=== PATIENT | female | born 1940 | race Caucasian/White ===

== ENCOUNTER → 2018-03-01 13:46 | Oncology outpatient (ONC) | payer OTHER, SELFPAY ==
[2018-03-01] MEDS: ZOLEDRONIC ACID 5 MG in SODIUM CHLORIDE 0.9% 100 ML 318.75 ML IV (14:21)
--- NOTE | 2018-03-01 15:10 | PC.NURSE ---
Tolerated Reclast infusion without adverse reaction noted.
[2018-03-01 15:11] VITALS: BP 133/73; PULSE 72; RESP 16; TEMP 37; O2SAT 96
== END ==
LOC: ONC 13:49
PROVIDERS: Family Provider Family Medicine; PCP Family Medicine; Visit Provider Family Medicine
DX: M81.0 Age-related osteoporosis without current pathological fracture (principal)
CPT/HCPCS: 96374; J3489

== ENCOUNTER 2018-03-24 12:22 | Emergency (ER) | payer OTHER, SELFPAY ==
[2018-03-24 12:25] VITALS: BP 155/68; PULSE 93; RESP 14; TEMP 36.8; O2SAT 100; BMI 21.6
--- NOTE | 2018-03-24 12:36 | ED.ARRPALP ---
HPI - Arrhythmia/Palpitations <Janae Avitia PA-C - Last Filed: 03/24/18 15:26> General Chief Complaint: Arrhythmia/Palpitations Stated Complaint: IRREGULAR HEART BEAT Time Seen by Provider: 03/24/18 12:34 Source: patient Mode of arrival: ambulatory Limitations: no limitations History of Present Illness HPI narrative: This 77-year-old female complains of irregular and rapid heart rate that started this morning. She states that she has felt ?wonky, meaning ?like I should be shaking, but I am not?. She states that she has been on atenolol for many years for tachycardia, and this has always worked well for her. Resting heart rates tend to be in the 60s to 70s, and maximal 90s if she is walking. She states that the feeling is similar this morning to prior to her going on atenolol. She states that she has a watch that measures heart rate and she has seen it very from the 60s-160s today, which is unusual. She denies any chest pain or dyspnea. She denies any pain swelling extremities. She denies any nausea or vomiting. She denies sweats or dizziness. She has been eating and drinking normally. She denies any recent illness such as respiratory or GI sx. She denies any new medications, did have her 1st infusion of Reclast a few weeks ago without problems. Related Data Home Medications Medication Instructions Recorded Confirmed atenolol 50 mg PO QDAY #30 tab 10/28/15 03/24/18 Allergies Allergy/AdvReac Type Severity Reaction Status Date / Time formaldehyde [FORMALDEHYDE] Allergy Severe ASTHMA Verified 03/24/18 12:34 lisinopril [LISINOPRIL] Allergy Mild RASH Verified 03/24/18 12:34 Sulfa (Sulfonamide Allergy Mild INFLAMMATIO Verified 03/24/18 12:34 Antibiotics) N [SULFA (SULFONAMIDE ANTIBIOTICS)] losartan [LOSARTAN] Allergy Unknown RASH Verified 03/24/18 12:34 NUTS Allergy Severe ASTHMA Uncoded 07/12/17 11:57 Review of Systems <Janae Avitia PA-C - Last Filed: 03/24/18 15:26> Review of Systems All systems reviewed & are unremarkable except as noted in HPI and below Exam <Janae Avitia PA-C - Last Filed: 03/24/18 15:26> Narrative Exam Narrative: GENERAL APPEARANCE: Patient sitting comfortably, in no distress. HEENT: PERRL, EOMI, normal oropharynx NECK/THYROID: Neck supple, no JVD. LUNGS: Clear to auscultation bilaterally. HEART: Regular rate and rhythm, up to 100, without murmur, normal S1, S2, no S3 or S4. ABDOMEN: Soft, NT, ND, + BS x 4 quadrants EXTREMITIES: No cyanosis or edema. No calf tenderness NEUROLOGIC: Alert and oriented, normal speech, gait and coordination. Initial Vital Signs Initial Vital Signs: Vital Signs Temperature 98.2 F 03/24/18 12:25 Pulse Rate 93 H 03/24/18 12:25 Respiratory Rate 14 03/24/18 12:25 Blood Pressure 155/68 H 03/24/18 12:25 Pulse Oximetry 100 03/24/18 12:25 <Luke Pastrana DO - Last Filed: 03/24/18 15:40> Initial Vital Signs Initial Vital Signs: Vital Signs Temperature 98.2 F 03/24/18 12:25 Pulse Rate 93 H 03/24/18 12:25 Respiratory Rate 14 03/24/18 12:25 Blood Pressure 155/68 H 03/24/18 12:25 Pulse Oximetry 100 03/24/18 12:25 Course <Janae Avitia PA-C - Last Filed: 03/24/18 15:26> Additional Information: Patient reported feeling comfortable while here. She is not hypoxic. Heart rates 80s to 90s with sinus rhythm. Heart rate close to 100 with ambulation. These rates are 10-20 points more than normal for her depending on situation. No clear contributing factors on her lab work. From what she describes she did have some irregular heart rate noted on her home monitor earlier today, and explained that it is possible she has intermittent atrial fibrillation even though we did not observe this here. Advised further workup is needed, and she will follow up with her PCP to discuss further testing/monitor in the next few days. In the interim, advised starting 81 mg ASA daily (she had a nosebleed on this previously which stopped on its own, agrees to try again). She agreed to return if she has worsening symptoms so that we can evaluate well symptomatic. Also advised to take an extra 25 mg of atenolol this afternoon, and can increase to 50 mg b.i.d. if she continues to have elevated heart rates. Explained that this frequently needs to be dosed b.i.d. for optimal symptom control. Orders Ordered: ED Orders 03/24/18 12:35 Complete Blood Count AUTO DIFF Stat Comprehensive Metabolic Panel Stat Magnesium Stat Thyroid Stimulating Hormone Stat Troponin & CK Cardiac Panel Stat Vital Signs - 8 hr 03/24/18 12:25 03/24/18 14:12 03/24/18 14:30 Temperature 98.2 F Pulse Rate 93 H 90 86 Respiratory Rate 14 18 10 L Blood Pressure 155/68 H Blood Pressure [Right Arm] 135/105 H 140/59 L Pulse Oximetry 100 99 98 03/24/18 14:55 Temperature Pulse Rate 88 Respiratory Rate 15 Blood Pressure 135/105 H Blood Pressure [Right Arm] Pulse Oximetry 99 <Luke Pastrana DO - Last Filed: 03/24/18 15:40> Orders Ordered: ED Orders 03/24/18 12:35 Complete Blood Count AUTO DIFF Stat Comprehensive Metabolic Panel Stat Magnesium Stat Thyroid Stimulating Hormone Stat Troponin & CK Cardiac Panel Stat Vital Signs - 8 hr 03/24/18 12:25 03/24/18 14:12 03/24/18 14:30 Temperature 98.2 F Pulse Rate 93 H 90 86 Respiratory Rate 14 18 10 L Blood Pressure 155/68 H Blood Pressure [Right Arm] 135/105 H 140/59 L Pulse Oximetry 100 99 98 03/24/18 14:55 Temperature Pulse Rate 88 Respiratory Rate 15 Blood Pressure 135/105 H Blood Pressure [Right Arm] Pulse Oximetry 99 MDM - Arrhythmia/Palpitations <Janae Avitia PA-C - Last Filed: 03/24/18 15:26> Lab Data Result diagrams: 03/24/18 12:35 03/24/18 12:35 Lab Results 03/24/18 03/24/18 03/24/18 Range/Units 12:35 12:35 12:35 WBC 7.5 (4.5-11.0) X10^3/uL RBC 4.65 (4.0-5.2) X10^6/uL Hgb 14.0 (12.0-16.0) g/dL Hct 42.2 (36-46) % MCV 90.6 (80-100) fL MCH 30.2 (26-34) PG MCHC 33.3 (30-36) % RDW 13.9 (11.6-14.8) % Plt Count 256 (150-400) X10^3/uL Neut % (Auto) 72.1 (50-75) % Lymph % (Auto) 21.3 L (25-40) % [place] % (Auto) 5.4 (3-14) % Eos % (Auto) 0.7 L (2-4) % Baso % (Auto) 0.5 (0-2) % Neut # (Auto) 5400 (9566-6915) /uL Sodium 141 (137-145) mmol/L Potassium 4.5 (3.4-5.1) mmol/L Chloride 101 (98-107) mmol/L Carbon Dioxide 27 (22-32) mmol/L BUN 22 H (7-17) mg/dL Creatinine 0.70 (0.52-1.04) mg/dL Estimated GFR > 60.0 (>60) mL/min BUN/Creatinine Ratio 31.4 H (6-22) Glucose 167 H (80-110) mg/dL Calcium 9.4 (8.4-10.2) mg/dL Magnesium 1.9 (1.6-2.3) mg/dL Total Bilirubin 0.5 (0.2-1.3) mg/dL AST 37 H (14-36) IU/L ALT 32 (9-52) IU/L Alkaline Phosphatase 80 (38-126) U/L Total Creatine Kinase 55 (30-135) U/L CK-MB (CK-2) TNP CK-MB (CK-2) Rel Index TNP Troponin I < 0.012 (0.01-0.034) ng/mL Total Protein 7.3 (6.3-8.2) g/dL Albumin 4.4 (3.5-5.0) g/dL Globulin 2.9 (1.7-4.1) g/dL Albumin/Globulin Ratio 1.5 (1.0-2.8) TSH 1.97 (0.47-4.68) uIU/mL Urine Dip Bedside Urine Glucose Negative Bedside Urine Bilirubin - Negative Bedside Urine Ketone - Negative Urine Specific [place] 1.010 Bedside Urine Occult Blood - Negative Bedside Urine pH 7.0 Bedside Urine Protein - Negative Bedside Urine Urobilinogen - Negative Bedside Urine Nitrite - Negative Bedside Urine Leukocytes - Negative Esterase ECG Data Attestation: I personally reviewed and interpreted this ECG as follows: (Normal sinus rhythm with a rate 91, normal axis, no ectopy) <Luke Pastrana DO - Last Filed: 03/24/18 15:40> Lab Data Lab Results 03/24/18 03/24/18 03/24/18 Range/Units 12:35 12:35 12:35 WBC 7.5 (4.5-11.0) X10^3/uL RBC 4.65 (4.0-5.2) X10^6/uL Hgb 14.0 (12.0-16.0) g/dL Hct 42.2 (36-46) % MCV 90.6 (80-100) fL MCH 30.2 (26-34) PG MCHC 33.3 (30-36) % RDW 13.9 (11.6-14.8) % Plt Count 256 (150-400) X10^3/uL Neut % (Auto) 72.1 (50-75) % Lymph % (Auto) 21.3 L (25-40) % [place] % (Auto) 5.4 (3-14) % Eos % (Auto) 0.7 L (2-4) % Baso % (Auto) 0.5 (0-2) % Neut # (Auto) 5400 (8868-9518) /uL Sodium 141 (137-145) mmol/L Potassium 4.5 (3.4-5.1) mmol/L Chloride 101 (98-107) mmol/L Carbon Dioxide 27 (22-32) mmol/L BUN 22 H (7-17) mg/dL Creatinine 0.70 (0.52-1.04) mg/dL Estimated GFR > 60.0 (>60) mL/min BUN/Creatinine Ratio 31.4 H (6-22) Glucose 167 H (80-110) mg/dL Calcium 9.4 (8.4-10.2) mg/dL Magnesium 1.9 (1.6-2.3) mg/dL Total Bilirubin 0.5 (0.2-1.3) mg/dL AST 37 H (14-36) IU/L ALT 32 (9-52) IU/L Alkaline Phosphatase 80 (38-126) U/L Total Creatine Kinase 55 (30-135) U/L CK-MB (CK-2) TNP CK-MB (CK-2) Rel Index TNP Troponin I < 0.012 (0.01-0.034) ng/mL Total Protein 7.3 (6.3-8.2) g/dL Albumin 4.4 (3.5-5.0) g/dL Globulin 2.9 (1.7-4.1) g/dL Albumin/Globulin Ratio 1.5 (1.0-2.8) TSH 1.97 (0.47-4.68) uIU/mL Urine Dip Bedside Urine Glucose Negative Bedside Urine Bilirubin - Negative Bedside Urine Ketone - Negative Urine Specific [place] 1.010 Bedside Urine Occult Blood - Negative Bedside Urine pH 7.0 Bedside Urine Protein - Negative Bedside Urine Urobilinogen - Negative Bedside Urine Nitrite - Negative Bedside Urine Leukocytes - Negative Esterase Discharge Plan Departure Patient Disposition: Home Clinical Impression: Tachycardia Discharge Date/Time: 03/24/18 14:56 Interventions: ED Discharge Assessment Last Done: 03/24/18 14:55 Instructions: DI for Tachycardia Activity Restrictions/Additional Instructions: It is not clear on your exam or testing why your fast heart rate is worse today. Your heart rate is in the 80s to 90s range, but regular when you are at rest today and just over 100 when you got up to walk around, which is 10-20 points more than normal from what you have described to me. We have not seen any irregular rhythm or skipped beats on your EKG or the monitor today. You do not have signs of infection or lab abnormality that seem to be causing this. When you get home, please take an extra 1/2 atenolol, and then you can take your usual dose tonight. If you're still noticing this tomorrow, go ahead and take 50 mg twice daily and monitor your heart rate. Please call your PCP 1st thing Monday morning and let them know you were seen in the ED and arranged follow-up in the next couple of days. It sounded like you may have had some irregular heartbeat from what you described on your home monitor, and as we talked about it is possible that you have atrial fibrillation on and off that we did not see here today. Due to this, I have suggested starting a baby aspirin (81 mg) once daily to help reduce risk of related problems like stroke. If you have severe nosebleeds on this, you can discontinue, but otherwise please stay on this until your PCP visit. You may need further testing, like a monitor that you wear at home, to evaluate further. Please return as we discussed if you are feeling poorly or have worsening symptoms again in the interim so that we can evaluate you on the monitor when you are symptomatic. Prescriptions: No Action atenolol 50 MG tablet 50 mg PO QDAY Qty: 30 RF: 0 Referrals: David Smith MD [Primary Care Provider] - <Luke Pastrana DO - Last Filed: 03/24/18 15:40> Cosign ED Attending Clintature Attestation: I was immediately available in the department for consultation. Documentation has been reviewed. I agree with assessment and plan.
[2018-03-24 12:52] LABS: Add Manual Diff / Slide Review NO; Basophils Percent Auto 0.5 % (0-2); Eosinophils Percent Auto 0.7 % (2-4); Hematocrit 42.2 % (36-46); Lymphocytes Percent Auto 21.3 % (25-40); Mean Corpuscular HGB Conc 33.3 % (30-36); Mean Corpuscular Hemoglobin 30.2 PG (26-34); Mean Corpuscular Volume 90.6 fL (80-100); Monocytes Percent Auto 5.4 % (3-14); Neutrophils Absolute Auto 5400 /uL (1500-7000); Neutrophils Percent Auto 72.1 % (50-75); Platelet Count 256 X10^3/uL (150-400); Red Blood Cell Count 4.65 X10^6/uL (4.0-5.2); Red Cell Distribution Width 13.9 % (11.6-14.8); White Blood Cell Count 7.5 X10^3/uL (4.5-11.0)
[2018-03-24 13:02] LABS: Alanine Aminotransferase 32 IU/L (9-52); Albumin 4.4 g/dL (3.5-5.0); Albumin Globulin Ratio 1.5 (1.0-2.8); Alkaline Phosphatase 80 U/L (38-126); Aspartate Aminotransferase 37 IU/L (14-36); BUN Creatinine Ratio 31.4 (6-22); Bilirubin Total 0.5 mg/dL (0.2-1.3); Blood Urea Nitrogen 22 mg/dL (7-17); Calcium 9.4 mg/dL (8.4-10.2); Carbon Dioxide 27 mmol/L (22-32); Chloride 101 mmol/L (98-107); Creatine Kinase 55 U/L (30-135); Estimated Glomerular Filt Rate > 60.0 mL/min (>60); Globulin 2.9 g/dL (1.7-4.1); Glucose 167 mg/dL (80-110); HEMOLYSIS < 15 (0-50); Magnesium 1.9 mg/dL (1.6-2.3); Potassium 4.5 mmol/L (3.4-5.1); Sodium 141 mmol/L (137-145); Total Protein 7.3 g/dL (6.3-8.2)
[2018-03-24 13:21] LABS: Troponin I < 0.012 ng/mL (0.01-0.034)
[2018-03-24 13:58] LABS: Thyroid Stimulating Hormone 1.97 uIU/mL (0.47-4.68)
[2018-03-24 14:12] VITALS: BP 135/105; PULSE 90; RESP 18; O2SAT 99
[2018-03-24 14:30] VITALS: BP 140/59; PULSE 86; RESP 10; O2SAT 98
[2018-03-24 14:55] VITALS: BP 135/105; PULSE 88; RESP 15; O2SAT 99
== END 2018-03-24 14:56 | disposition home or self-care (01) ==
PROVIDERS: Emergency Provider Internal Medicine; Family Provider Family Medicine; PCP Family Medicine
DX: R00.0 Tachycardia, unspecified (principal)
CPT/HCPCS: 36591; 80053; 81003; 82550; 83735; 84443; 84484; 85025; 93005; 99282; 99284

== ENCOUNTER → 2018-10-02 14:15 | Outpatient (CLI) | payer OTHER, SELFPAY ==
--- NOTE | 2018-10-02 | DI.MG.S_ITS ---
BILATERAL DIGITAL SCREENING MAMMOGRAM 3D/2D WITH CAD: 10/02/2018 CLINICAL: Routine screening. Family history of breast cancer. Comparison is made to exams dated: 03/14/2017 mammogram and 02/02/2015 mammogram - [facility]. There are scattered fibroglandular elements in both breasts. Current study was also evaluated with a Computer Aided Detection (CAD) system. There are benign calcifications in both breasts. No significant masses, calcifications, or other findings are seen in either breast. There has been no significant interval change. IMPRESSION: There is no mammographic evidence of malignancy. A 1 year screening mammogram is recommended. This exam was interpreted at Station ID: [id number]. NOTE: For mammograms, a report in lay terms will be sent to the patient. Approximately 15% of breast malignancies will not be visualized mammographically. In the management of a palpable breast mass, a negative mammogram must not discourage biopsy of a clinically suspicious lesion. Electronically Signed By: Robby austin/sahil:10/02/2018 18:03:51 copy to: David Smith letter sent: Normal Exam ACR BI-RADS Category 2: Benign Finding(s) 3342F
== END ==
PROVIDERS: Family Provider Family Medicine; PCP Family Medicine; Visit Provider Nurse Practitioner Family
DX: Z12.31 Encounter for screening mammogram for malignant neoplasm of breast (principal); M81.0 Age-related osteoporosis without current pathological fracture; Z78.0 Asymptomatic menopausal state; Z80.3 Family history of malignant neoplasm of breast
CPT/HCPCS: 77063; 77067; 77080

== ENCOUNTER → 2020-10-01 13:25 | Outpatient (CLI) | payer OTHER, SELFPAY ==
[2020-10-01 14:43] LABS: Hemoglobin A1C% w Est Avg Glu 5.9 % (4.0-6.0)
[2020-10-01 14:45] LABS: Albumin 4.3 g/dL (3.5-5.0); Blood Urea Nitrogen 17 mg/dL (7-17); Calcium 9.4 mg/dL (8.4-10.2); Carbon Dioxide 31 mmol/L (22-32); Chloride 104 mmol/L (98-107); Estimated Glomerular Filt Rate > 60.0 mL/min (>60); Glucose 161 mg/dL (80-110); HEMOLYSIS < 15 (0-50); Phosphorous 3.5 mg/dL (2.8-4.1); Potassium 4.1 mmol/L (3.4-5.1); Sodium 140 mmol/L (137-145)
== END ==
PROVIDERS: PCP Family Medicine; Referring Provider Internal Medicine Endocrinology, Diabetes & Metabolism; Visit Provider Internal Medicine Endocrinology, Diabetes & Metabolism
DX: R73.03 Prediabetes (principal)
CPT/HCPCS: 36415; 80069; 83036

== ENCOUNTER → 2020-11-26 11:41 | Outpatient (CLI) | payer OTHER, SELFPAY | PROVIDERS: PCP Family Medicine; Referring Provider Internal Medicine Endocrinology, Diabetes & Metabolism; Visit Provider Internal Medicine Endocrinology, Diabetes & Metabolism | DX: M81.0 Age-related osteoporosis without current pathological fracture (principal); Z78.0 Asymptomatic menopausal state | CPT/HCPCS: 77080 ==

== ENCOUNTER → 2020-12-11 11:22 | Outpatient (CLI) | payer OTHER, SELFPAY ==
--- NOTE | 2020-12-11 | DI.MG.S_ITS ---
BILATERAL DIGITAL SCREENING MAMMOGRAM 3D/2D WITH CAD: 12/11/2020 CLINICAL: Routine screening. Family history of breast cancer. Comparison is made to exams dated: 10/02/2018 mammogram, 03/14/2017 mammogram, and 02/02/2015 mammogram - [facility]. There are scattered fibroglandular elements in both breasts. Current study was also evaluated with a Computer Aided Detection (CAD) system. There are benign calcifications in both breasts. No significant masses, calcifications, or other findings are seen in either breast. There has been no significant interval change. IMPRESSION: BENIGN There is no mammographic evidence of malignancy. A 1 year screening mammogram is recommended. This exam was interpreted at Station ID: [id number]. NOTE: For mammograms, a report in lay terms will be sent to the patient. Approximately 15% of breast malignancies will not be visualized mammographically. In the management of a palpable breast mass, a negative mammogram must not discourage biopsy of a clinically suspicious lesion. Electronically Signed By: Kwame helm/sahil:12/11/2020 12:08:27 copy to: David Smith letter sent: Normal Exam ACR BI-RADS Category 2: Benign Finding(s) 3342F
== END ==
PROVIDERS: PCP Family Medicine; Referring Provider Family Medicine; Visit Provider Family Medicine
DX: Z12.31 Encounter for screening mammogram for malignant neoplasm of breast (principal); Z80.3 Family history of malignant neoplasm of breast
CPT/HCPCS: 77063; 77067

== ENCOUNTER → 2021-12-23 13:48 | Outpatient (CLI) | payer OTHER, SELFPAY ==
--- NOTE | 2021-12-23 | DI.MG.S_ITS ---
BILATERAL DIGITAL SCREENING MAMMOGRAM 3D/2D WITH CAD: 12/23/2021 CLINICAL: Routine screening. Family history of breast cancer. Comparison is made to exams dated: 12/11/2020 mammogram, 10/02/2018 mammogram, and 03/14/2017 mammogram - [facility]. There are scattered areas of fibroglandular density in both breasts (category b / 25%-50% glandular tissue). Current study was also evaluated with a Computer Aided Detection (CAD) system. There is a cluster of grouped fine punctate calcifications in the right breast at 10 o'clock posterior depth. No other significant masses, calcifications, or other findings are seen in either breast. IMPRESSION: INCOMPLETE: NEEDS ADDITIONAL IMAGING EVALUATION The cluster of grouped fine punctate calcifications in the right breast are indeterminate. Magnification views are recommended. Based on the Tyrer Cuzick model (a risk assessment model) the patient's lifetime risk is 1.9% and her 10 year risk is 0.0%. According to the ACR, ACS, and NCCN guidelines, an annual breast MRI exam along with mammogram is recommended if the patient's lifetime risk is 20% or greater. This exam was interpreted at Station ID: [id number]. NOTE: For mammograms, a report in lay terms will be sent to the patient. Approximately 15% of breast malignancies will not be visualized mammographically. In the management of a palpable breast mass, a negative mammogram must not discourage biopsy of a clinically suspicious lesion. Electronically Signed By: Jasmeet Turk M.D., jr/sahil:12/23/2021 14:28:43 copy to: David Smith letter sent: Additional Imaging Needed ACR BI-RADS Category 0: Incomplete 3340F
== END ==
PROVIDERS: PCP Family Medicine; Referring Provider Family Medicine; Visit Provider Family Medicine
DX: Z12.31 Encounter for screening mammogram for malignant neoplasm of breast (principal); Z80.3 Family history of malignant neoplasm of breast; R92.1 Mammographic calcification found on diagnostic imaging of breast
CPT/HCPCS: 77063; 77067

== ENCOUNTER → 2022-02-28 09:02 | Outpatient (CLI) | payer OTHER, SELFPAY ==
--- NOTE | 2022-02-28 | DI.MG.S_ITS ---
UNILATERAL RIGHT DIGITAL DIAGNOSTIC MAMMOGRAM 3D/2D WITH ADDITIONAL VIEWS: 02/28/2022 CLINICAL: Additional evaluation requested from prior study. Comparison is made to exams dated: 12/23/2021 mammogram, 12/11/2020 mammogram, and 10/02/2018 mammogram - [facility]. There are scattered areas of fibroglandular density in the right breast (category b / 25%-50% glandular tissue). There is a cluster of vascular calcifications in the right breast at 10 o'clock posterior depth. No other significant masses or calcifications are seen in the breast. IMPRESSION: BENIGN There is no mammographic evidence of malignancy. Return to annual mammogram screening schedule is recommended. Based on the Tyrer Cuzick model (a risk assessment model) the patient's lifetime risk is 1.9% and her 10 year risk is 0.0%. According to the ACR, ACS, and NCCN guidelines, an annual breast MRI exam along with mammogram is recommended if the patient's lifetime risk is 20% or greater. This exam was interpreted at Station ID: [id number]. NOTE: For mammograms, a report in lay terms will be sent to the patient. Approximately 15% of breast malignancies will not be visualized mammographically. In the management of a palpable breast mass, a negative mammogram must not discourage biopsy of a clinically suspicious lesion. Electronically Signed By: Grace Walker M.D. lk/:02/28/2022 09:28:03 copy to: David Smith letter sent: Normal Exam ACR BI-RADS Category 2: Benign Finding(s) 3342F
== END ==
PROVIDERS: PCP Family Medicine; Referring Provider Family Medicine; Visit Provider Family Medicine
DX: R92.8 Other abnormal and inconclusive findings on diagnostic imaging of breast (principal)
CPT/HCPCS: 77065; G0279

== ENCOUNTER → 2022-09-30 09:30 | Outpatient (CLI) | payer OTHER, SELFPAY ==
[2022-09-30 11:12] LABS: BUN Creatinine Ratio 27.4 (6-22); Blood Urea Nitrogen 17 mg/dL (7-17); Calcium 9.3 mg/dL (8.4-10.2); Carbon Dioxide 28 mmol/L (22-32); Chloride 101 mmol/L (98-107); Estimated Glomerular Filt Rate > 60 mL/min (>60); Glucose 102 mg/dL (80-110); HEMOLYSIS < 15 (0-50); Potassium 4.6 mmol/L (3.4-5.1); Sodium 138 mmol/L (137-145)
[2022-09-30 11:29] LABS: Vitamin D 25 Hydroxy (D3) 34.9 ng/mL (30.0-100.0)
== END ==
PROVIDERS: PCP Family Medicine; Referring Provider Internal Medicine Endocrinology, Diabetes & Metabolism; Visit Provider Internal Medicine Endocrinology, Diabetes & Metabolism
DX: M81.8 Other osteoporosis without current pathological fracture; E55.9 Vitamin D deficiency, unspecified
CPT/HCPCS: 36415; 80048; 82306

== ENCOUNTER → 2022-12-26 12:30 | Outpatient (CLI) | payer OTHER, SELFPAY ==
--- NOTE | 2022-12-26 | DI.MG.S_ITS ---
BILATERAL DIGITAL SCREENING MAMMOGRAM 3D/2D WITH CAD: 12/26/2022 CLINICAL: Routine screening. Family history of breast cancer. Comparison is made to exams dated: 02/28/2022 mammogram, 12/23/2021 mammogram, 12/11/2020 mammogram, and 10/02/2018 mammogram - [facility]. There are scattered areas of fibroglandular density in both breasts (category b / 25%-50% glandular tissue). Current study was also evaluated with a Computer Aided Detection (CAD) system. No significant masses, calcifications, or other findings are seen in either breast. IMPRESSION: NEGATIVE There is no mammographic evidence of malignancy. A 1 year screening mammogram is recommended. Based on the Tyrer Cuzick model (a risk assessment model) the patient's lifetime risk is 1.6% and her 10 year risk is 0.0%. According to the ACR, ACS, and NCCN guidelines, an annual breast MRI exam along with mammogram is recommended if the patient's lifetime risk is 20% or greater. This exam was interpreted at Station ID: [id number]. NOTE: For mammograms, a report in lay terms will be sent to the patient. Approximately 15% of breast malignancies will not be visualized mammographically. In the management of a palpable breast mass, a negative mammogram must not discourage biopsy of a clinically suspicious lesion. Electronically Signed By: Melanie kapoor/sahil:12/26/2022 18:09:34 copy to: David Smith letter sent: Normal Exam ACR BI-RADS Category 1: Negative 3341F
== END ==
PROVIDERS: PCP Family Medicine; Referring Provider Family Medicine; Visit Provider Family Medicine
DX: Z12.31 Encounter for screening mammogram for malignant neoplasm of breast (principal); Z80.3 Family history of malignant neoplasm of breast
CPT/HCPCS: 77063; 77067

== ENCOUNTER → 2023-06-13 | Outpatient (CLI) | payer OTHER, SELFPAY ==
--- NOTE | 2023-06-13 13:49 | DI.RAD.S_ITS ---
Bone Density Report Name: LYNDSAY MINOR Age: 82 Sex: Female Ethnicity: White Date of : 1940 Indication: postmenopausal osteoporosis; monitoring treatment; Referring Provider: BILLY MCKNIGHT Study: Bone densitometry was performed. Exam Date: June 13, 2023 Accession number: [id number] Bone Density: Region BMD T-score Z-score Classification AP Spine(L1-L4) 0.627 -3.8 -1.1 Osteoporosis Femoral Neck (Left) 0.556 -2.6 -0.3 Osteoporosis Total Hip (Left) 0.682 -2.1 0.0 Osteopenia Femoral Neck (Right) 0.564 -2.6 -0.2 Osteoporosis Total Hip (Right) 0.667 -2.3 -0.2 Osteopenia Total Hip Mean 0.674 -2.2 -0.1 Osteopenia World Health Organization criteria for BMD impression classify patients as: Normal (T-score at or above -1.0), Osteopenia (T-score between -1.0 and -2.5), or Osteoporosis (T-score at or below -2.5). 10-year Fracture Risk: FRAX not reported because: Some T-score for Spine Total or Hip Total or Femoral Neck at or below -2.5 Treated for osteoporosis Previous Exams: -- Region Exam Age BMD T-score BMD Change BMD Change Date g/cm2 vs Baseline vs Previous -- AP Spine (L1-L4) 06/13/2023 82 0.627 -3.8 0.075 (13.5%)# -0.061 (-8.8%)# 11/26/2020 80 0.688 -3.3 0.135 (24.5%)* 0.080 (13.2%)* 10/02/2018 77 0.608 -4.0 0.055 (10.0%)* 0.055 (10.0%)* 04/12/2017 76 0.553 -4.5 Total Hip(Left) 06/13/2023 82 0.682 -2.1 0.034 (5.2%)# -0.016 (-2.3%)# 11/26/2020 80 0.697 -2.0 0.050 (7.7%)* 0.013 (1.9%) 10/02/2018 77 0.684 -2.1 0.036 (5.6%)* 0.036 (5.6%)* 04/12/2017 76 0.648 -2.4 Total Hip(Right) 06/13/2023 82 0.667 -2.3 0.022 (3.4%)# 0.019 (2.9%)# 11/26/2020 80 0.648 -2.4 0.003 (0.4%) -0.030 (-4.4%)* 10/02/2018 77 0.678 -2.2 0.032 (5.0%)* 0.032 (5.0%)* 04/12/2017 76 0.646 -2.4 -- *Denotes significance at 95% confidence level, LSC for AP Spine = 0.022 g/cm2, LSC for Total Hip = 0.027 g/cm2 # Denotes dissimilar scan types or analysis methods Impression: The patient has osteoporosis, based on the Total Spine T-score. No significant bone loss was observed. Discussion: PATIENT UNDER TREATMENT WITH NO SIGNIFICANT BMD LOSS SINCE LAST EXAM. In an untreated patient, BMD typically declines with age. A lack of decline or gain is usually a sign that treatment is efficacious and fracture risk is reduced. It is important to ask patients whether they are taking their medications and to encourage continued and appropriate compliance with their osteoporosis therapies to reduce fracture risk. It is also important to review their risk factors and encourage appropriate calcium and vitamin D intakes, exercise, fall prevention and other lifestyle measures. Follow-Up: Consider a repeat BMD and Vertebral Fracture Assessment (VFA) exam in 2 years or sooner if medically necessary, to reassess this patient's status. Reported by: [facility] MENSAH M.D. on 06/13/2023 2:23:00 PM.
== END ==
PROVIDERS: PCP Family Medicine; Referring Provider Internal Medicine Endocrinology, Diabetes & Metabolism; Visit Provider Internal Medicine Endocrinology, Diabetes & Metabolism
DX: M81.0 Age-related osteoporosis without current pathological fracture (principal)
CPT/HCPCS: 77080

== ENCOUNTER → 2023-09-22 11:40 | Outpatient (CLI) | payer OTHER, SELFPAY ==
[2023-09-22 12:26] LABS: Add Manual Diff / Slide Review NO; Basophils Absolute Auto 100 /uL (0-100); Basophils Percent Auto 0.9 % (0-2); Eosinophils Absolute Auto 0 /uL (0-450); Eosinophils Percent Auto 0.6 % (2-4); Hematocrit 41.7 % (36-46); Hemoglobin 13.9 g/dL (12.0-16.0); Lymphocytes Absolute Auto 1400 /uL (1100-4500); Lymphocytes Percent Auto 21.3 % (25-40); Mean Corpuscular HGB Conc 33.4 % (30-36); Mean Corpuscular Hemoglobin 30.1 PG (26-34); Mean Corpuscular Volume 90.1 fL (80-100); Monocytes Absolute Auto 400 /uL (0-900); Monocytes Percent Auto 6.3 % (3-14); Neutrophils Absolute Auto 4700 /uL (1500-7000); Neutrophils Percent Auto 70.9 % (50-75); Platelet Count 242 X10^3/uL (150-400); Red Blood Cell Count 4.63 X10^6/uL (4.0-5.2); White Blood Cell Count 6.6 X10^3/uL (4.5-11.0)
[2023-09-22 12:39] LABS: INR 1.1 (0.9-1.3); Prothrombin Time 12.1 SECONDS (9.4-12.5)
[2023-09-22 13:04] LABS: Alanine Aminotransferase 15 IU/L (<35); Albumin 4.3 g/dL (3.5-5.0); Albumin Globulin Ratio 1.4 (1.0-2.8); Alkaline Phosphatase 77 U/L (38-126); Aspartate Aminotransferase 29 IU/L (14-36); BUN Creatinine Ratio 31.4 (6-22); Bilirubin Total 0.5 mg/dL (0.2-1.3); Blood Urea Nitrogen 22 mg/dL (7-17); Calcium 9.5 mg/dL (8.4-10.2); Carbon Dioxide 27 mmol/L (22-32); Chloride 106 mmol/L (98-107); Estimated Glomerular Filt Rate > 60 mL/min (>60); Glucose 94 mg/dL (80-110); HEMOLYSIS < 15 (0-50); Sodium 138 mmol/L (137-145); Total Protein 7.3 g/dL (6.3-8.2)
== END ==
PROVIDERS: PCP Family Medicine; Referring Provider Family Medicine; Visit Provider Family Medicine
DX: Z00.00 Encounter for general adult medical examination without abnormal findings (principal); Z01.818 Encounter for other preprocedural examination; R73.03 Prediabetes
CPT/HCPCS: 80053; 85025; 85610

== ENCOUNTER → 2025-01-28 09:07 | Outpatient (CLI) | payer OTHER, SELFPAY ==
[2025-01-28 10:22] LABS: Add Manual Diff / Slide Review NO; Hematocrit 44.4 % (36-46); Hemoglobin 14.6 g/dL (12.0-16.0); Lymphocytes Absolute Auto 1100 /uL (1100-4500); Mean Corpuscular HGB Conc 33.0 % (30-36); Mean Corpuscular Hemoglobin 29.6 PG (26-34); Mean Corpuscular Volume 89.6 fL (80-100); Platelet Count 263 X10^3/uL (150-400)
[2025-01-28 10:43] LABS: Alanine Aminotransferase 19 IU/L (<35); Albumin 4.4 g/dL (3.5-5.0); Albumin Globulin Ratio 1.5 (1.0-2.8); Alkaline Phosphatase 99 U/L (38-126); Blood Urea Nitrogen 15 mg/dL (7-17); Calcium 10.0 mg/dL (8.4-10.2); Carbon Dioxide 29 mmol/L (22-32); Chloride 104 mmol/L (98-107); Estimated Glomerular Filt Rate > 60 mL/min (>60); Globulin 2.9 g/dL (1.7-4.1); Glucose 103 mg/dL (70-99); HEMOLYSIS < 15 (0-50); Potassium 5.3 mmol/L (3.4-5.1); Sodium 139 mmol/L (137-145); Total Protein 7.3 g/dL (6.3-8.2)
== END ==
PROVIDERS: PCP Family Medicine; Referring Provider Family Medicine; Visit Provider Family Medicine
DX: Z00.00 Encounter for general adult medical examination without abnormal findings (principal); I10 Essential (primary) hypertension; R73.03 Prediabetes
CPT/HCPCS: 36415; 80053; 85025